=== PATIENT | female | born 1995 | race Caucasian/White ===

== ENCOUNTER 2017-05-20 00:12 | Emergency (ER) | payer MEDICAID ==
[2017-05-20 00:34] LABS: BILIRUBIN,URINE NEGATIVE (NEGATIVE); GLUCOSE, URINE (UA) NEGATIVE (NEGATIVE); KETONES,URINE (UA) NEGATIVE (NEGATIVE); LEUKOCYTE ESTERASE, URINE SMALL (NEGATIVE); NITRITE,URINE POSITIVE (NEGATIVE); OCCULT BLOOD,URINE MODERATE (NEGATIVE); PROTEIN,URINE 30 mg/dL (NEGATIVE); UROBILINOGEN,URINE 1 (NORMAL) E.U./dL (NORMAL)
[2017-05-20 00:42] LABS: CLARITY,URINE CLEAR (CLEAR); HCG UR QUAL NEGATIVE
[2017-05-20 00:43] LABS: BACTERIA,URINE None Seen /HPF (None Seen); SQUAMOUS EPITHELIAL CELL,UR FEW Squamous (<= Few)
--- NOTE | 2017-05-20 00:43 | ED Physician Documentation ---
PD HPI FEMALE - Stated complaint Stated Complaint: LT FLANK PAIN - Chief complaint Chief Complaint: Abd Pain - History obtained from History obtained from: Patient - History of Present Illness Timing - onset: Yesterday Timing - details: Gradual onset, Still present Associated symptoms: Urinary frequency, Hematuria. No: Pelvic pain, Vaginal pain, Vaginal discharge Similar symptoms before: No diagnosis Recently seen: Not recently seen - Additional information Additional information: Patient is a 21 year old female with no significant past medical history who is presenting to the emergency department for left sided flank pain. patient states that two weeks ago she had hematuria that resolved. Patient states that for the last two days she has had flank pain and today took azo. Patient states that her dysuria has resolved. Review of Systems Constitutional: denies: Fever, Chills Eyes: reports: Reviewed and negative Ears: reports: Reviewed and negative Nose: reports: Reviewed and negative Throat: reports: Reviewed and negative Cardiac: denies: Chest pain / pressure Respiratory: denies: Cough, Wheezing GI: denies: Abdominal Pain, Nausea, Vomiting : reports: Dysuria, Frequency, Hematuria Skin: denies: Rash, Lesions Musculoskeletal: reports: Back pain Neurologic: denies: Generalized weakness, Focal weakness, Numbness Immunocompromised: denies: Immunocompromised PD PAST MEDICAL HISTORY - Past Medical History Past Medical History: Yes Psych: Depression, Anxiety - Past Surgical History Past Surgical History: No - Present Medications Home Medications: Ambulatory Orders Medication Instructions Recorded Confirmed Sulfamethox/Trimeth 800/160 1 each PO BID #20 tablet 05/20/17 [Bactrim Ds 800/160] - Allergies Allergies/Adverse Reactions: Allergies Allergy/AdvReac Type Severity Reaction Status Date / Time No Known Drug Allergies Allergy Verified 05/20/17 00:30 - Social History Does the pt smoke?: Yes Smoking Status: Current every day smoker Does the pt drink ETOH?: Yes Does the pt have substance abuse?: No - Immunizations Immunizations are current?: Yes - POLST Patient has POLST: No PD ED PE NORMAL - Vitals Vital signs reviewed: Yes - General General: Alert and oriented X 3, No acute distress, Well developed/nourished - HEENT HEENT: Atraumatic, PERRL, Pharynx benign - Neck Neck: Supple, no meningeal sign - Respiratory Respiratory: No respiratory distress - Abdomen Abdomen: Soft, Non tender, Non distended - Back Back: No CVA TTP - Derm Derm: Normal color, Warm and dry, No rash - Extremities Extremities: No deformity, Normal ROM s pain, No calf tenderness / cord - Neuro Neuro: Alert and oriented X 3, No motor deficit, No sensory deficit, Normal speech - Psych Psych: Normal mood PD ED PE EXPANDED - General General: Anxious Results - Vitals Vitals: Vital Signs - 24 hr 05/20/17 00:15 Temperature 36.8 C Heart Rate 110 H Respiratory 15 Rate Blood Pressure 154/107 H O2 Saturation 98 Oxygen O2 Source Room air PD MEDICAL DECISION MAKING - ED course Complexity details: reviewed old records, reviewed results, re-evaluated patient , considered differential, d/w patient ED course: Patient was seen and examined at bedside. Urine was collected. Patient's urine was consistent with urinary tract infection. Patient was started on bactrim. Patient required no further inpatient work up and was stable for discharge with outpatient follow up. Departure - Departure Disposition: Home, Self Care Clinical Impression: Cystitis, Urinary tract infection Condition: Good Instructions: ED UTI Cystitis Female Follow-Up: Aleks Reeves MD [Primary Care Provider] - Within 1 week Prescriptions: Sulfamethox/Trimeth 800/160 [Bactrim Ds 800/160] 1 each PO BID #20 tablet Comments: Your symptoms today are being caused by a urinary tract infection. You had your first dose of antibiotics and you will need to be on them for ten days. You can take motrin, tylenol and azo as needed for pain and it is important that you follow up with your doctor if your symptoms don't improve over the next 3-4 days. You may return to the emergency department at any time for new, worsening or uncontrollable symptoms.
[2017-05-20] MEDS ORDERED: SULFAMETH/TRIMETH DS 800/160 MG TABLET PO STA (00:45)
[2017-05-20 01:03] VITALS: BP 145/89
== END 2017-05-20 01:02 | disposition home or self-care (01) ==
LOC: ED 00:12
DX: N30.90 Cystitis, unspecified without hematuria (principal); F17.200 Nicotine dependence, unspecified, uncomplicated
CPT/HCPCS: 81001; 81025; 87086; 87181; 99283; A9270; 81003

== ENCOUNTER 2017-07-18 15:38 | Emergency (ER) | payer MEDICAID ==
[2017-07-18 15:45] VITALS: BP 125/72
[2017-07-18 16:05] LABS: BILIRUBIN,URINE NEGATIVE (NEGATIVE); GLUCOSE, URINE (UA) NEGATIVE (NEGATIVE); KETONES,URINE (UA) NEGATIVE (NEGATIVE); LEUKOCYTE ESTERASE, URINE MODERATE (NEGATIVE); NITRITE,URINE POSITIVE (NEGATIVE); OCCULT BLOOD,URINE MODERATE (NEGATIVE); PROTEIN,URINE NEGATIVE (NEGATIVE); UROBILINOGEN,URINE 0.2 (NORMAL) E.U./dL (NORMAL)
[2017-07-18 16:11] LABS: CLARITY,URINE CLEAR (CLEAR)
--- NOTE | 2017-07-18 16:11 | ED Physician Documentation ---
PD HPI FEMALE - Stated complaint Stated Complaint: FEMALE - Chief complaint Chief Complaint: UTI - History obtained from History obtained from: Patient - History of Present Illness Timing - onset: How many days ago (3) Timing - duration: Days (3) Timing - details: Gradual onset, Still present Associated symptoms: Back pain, Dysuria, Urinary frequency, Hematuria Contributing factors: No: Similar symptoms before: Diagnosis (UTI) Recently seen: Not recently seen - Additional information Additional information: 22-year-old female has had one prior episode of urinary tract infection and. She has not had a fever or nausea she does have some back pain. Review of Systems Constitutional: denies: Fever Eyes: denies: Decreased vision Ears: denies: Ear pain Nose: denies: Congestion Throat: denies: Sore throat Cardiac: denies: Chest pain / pressure Respiratory: denies: Dyspnea, Cough GI: denies: Abdominal Pain, Nausea, Vomiting, Constipation, Diarrhea : reports: Dysuria, Frequency Skin: denies: Rash Musculoskeletal: reports: Back pain. denies: Neck pain, Extremity pain Neurologic: denies: Generalized weakness, Focal weakness PD PAST MEDICAL HISTORY - Past Medical History Past Medical History: No Psych: Depression, Anxiety - Past Surgical History Past Surgical History: No - Present Medications Home Medications: Ambulatory Orders Medication Instructions Recorded Confirmed Sulfamethoxazole/Trimethoprim 1 each PO BID #10 tablet 07/18/17 [Sulfamethoxazole-Tmp Ds Tablet] - Allergies Allergies/Adverse Reactions: Allergies Allergy/AdvReac Type Severity Reaction Status Date / Time No Known Drug Allergies Allergy Verified 05/20/17 00:30 - Social History Does the pt smoke?: Yes Smoking Status: Current every day smoker Does the pt drink ETOH?: Yes Does the pt have substance abuse?: No - Immunizations Immunizations are current?: Yes - POLST Patient has POLST: No PD ED PE NORMAL - Vitals Vital signs reviewed: Yes (normal ) - General General: No acute distress, Well developed/nourished - HEENT HEENT: Atraumatic, PERRL, EOMI - Neck Neck: Supple, no meningeal sign - Cardiac Cardiac: RRR, No murmur - Respiratory Respiratory: No respiratory distress, Clear bilaterally - Abdomen Abdomen: Soft, Other (mild tenderness to bimanual palpation of each kidney) - Back Back: No spinal TTP - Derm Derm: Normal color, Warm and dry, No rash - Extremities Extremities: No deformity, No edema - Neuro Neuro: No motor deficit, No sensory deficit Eye Opening: Spontaneous Motor: Obeys Commands Verbal: Oriented GCS Score: 15 - Psych Psych: Normal mood, Normal affect Results - Vitals Vitals: Vital Signs - 24 hr 07/18/17 15:43 Temperature 36.5 C Heart Rate 93 Respiratory 14 Rate Blood Pressure 125/72 O2 Saturation 99 Oxygen O2 Source Room air - Labs Labs: Laboratory Tests 07/18/17 15:58 Urine Color DARK YELLOW Urine Clarity CLEAR Urine pH 5.0 Ur Specific [place] <=1.005 Urine Protein NEGATIVE Urine Glucose (UA) NEGATIVE Urine Ketones NEGATIVE Urine Occult Blood MODERATE H Urine Nitrite POSITIVE H Urine Bilirubin NEGATIVE Urine Urobilinogen 0.2 (NORMAL) Ur Leukocyte Esterase MODERATE H Urine RBC 0-5 Urine WBC >25 H Urine WBC Clumps PRESENT Ur Squamous Epith Cells FEW Squamous Urine Bacteria Moderate H Ur Microscopic Review INDICATED Urine Culture Comments INDICATED PD MEDICAL DECISION MAKING - ED course Complexity details: reviewed results, re-evaluated patient, considered differential, d/w patient ED course: 22-year-old female with urinary tract infection is placed on Septra.Her prior urine grew a sensitive E. coli. Departure - Departure Disposition: 01 Home, Self Care Clinical Impression: Urinary tract infection Qualifiers: Urinary tract infection type: acute cystitis Hematuria presence: with hematuria Qualified Code(s): N30.01 - Acute cystitis with hematuria Condition: Stable Instructions: ED UTI Cystitis Female Follow-Up: Aleks Reeves MD [Primary Care Provider] - Prescriptions: Sulfamethoxazole/Trimethoprim [Sulfamethoxazole-Tmp Ds Tablet] 1 each PO BID # 10 tablet Discharge Date/Time: 07/18/17 16:15
[2017-07-18 16:24] LABS: BACTERIA,URINE Moderate /HPF (None Seen); RBC,URINE 0-5 /HPF (0-5); SQUAMOUS EPITHELIAL CELL,UR FEW Squamous (<= Few)
[2017-07-18 16:25] LABS: WBC CLUMPS,URINE PRESENT
== END 2017-07-18 16:15 | disposition home or self-care (01) ==
LOC: ED 15:38
DX: N30.01 Acute cystitis with hematuria (principal); F17.200 Nicotine dependence, unspecified, uncomplicated
CPT/HCPCS: 81001; 81003; 87077; 87086; 99283

== ENCOUNTER 2017-07-20 17:21 | Emergency (ER) | payer MEDICAID ==
[2017-07-20 18:31] LABS: BILIRUBIN,URINE NEGATIVE (NEGATIVE); GLUCOSE, URINE (UA) NEGATIVE (NEGATIVE); KETONES,URINE (UA) NEGATIVE (NEGATIVE); LEUKOCYTE ESTERASE, URINE LARGE (NEGATIVE); NITRITE,URINE NEGATIVE (NEGATIVE); OCCULT BLOOD,URINE LARGE (NEGATIVE); PH,URINE 6.5 PH (5.0-7.5); PROTEIN,URINE TRACE mg/dL (NEGATIVE); UROBILINOGEN,URINE 0.2 (NORMAL) E.U./dL (NORMAL)
[2017-07-20 18:32] LABS: CLARITY,URINE CLOUDY (CLEAR)
--- NOTE | 2017-07-20 18:33 | ED Physician Documentation ---
PD HPI FEMALE - Stated complaint Stated Complaint: FEM - Chief complaint Chief Complaint: Abd Pain - History obtained from History obtained from: Patient - History of Present Illness Timing - onset: How many days ago (several) Timing - duration: Days Timing - details: Gradual onset (had UTI symptoms initally and was seen here with UTI Dx and Rx bactrim. She is not improved and having flank pain, nausea, fevers. Culture result today showing resistance to sulfa, so reasonable to not be improved.), Still present Associated symptoms: Fever, Abdominal pain, Dysuria, Urinary frequency. No: Vaginal discharge, Genital sore/lesion Contributing factors: No: Exposed to STD Similar symptoms before: Has not had sx before Recently seen: Emergency Dept Review of Systems Constitutional: reports: Fever, Chills, Myalgias Nose: denies: Rhinorrhea / runny nose, Congestion Throat: denies: Sore throat Respiratory: denies: Dyspnea, Cough GI: reports: Nausea. denies: Vomiting, Diarrhea : reports: Dysuria, Frequency. denies: Discharge Skin: denies: Rash, Lesions Neurologic: reports: Generalized weakness. denies: Focal weakness, Near syncope PD PAST MEDICAL HISTORY - Past Medical History Cardiovascular: None Respiratory: None Neuro: None Endocrine/Autoimmune: None Psych: Depression, Anxiety - Past Surgical History Past Surgical History: No - Present Medications Home Medications: Ambulatory Orders Medication Instructions Recorded Confirmed Sulfamethoxazole/Trimethoprim 1 each PO BID #10 tablet 07/18/17 [Sulfamethoxazole-Tmp Ds Tablet] Cephalexin [Keflex] 500 mg PO QID #28 capsule 07/20/17 Naproxen 375 mg PO BID #20 tablet 07/20/17 Ondansetron Odt [Zofran] 4 mg TL Q6H PRN #15 tablet 07/20/17 Tramadol HCl 50 mg PO Q6H PRN #20 tablet 07/20/17 - Allergies Allergies/Adverse Reactions: Allergies Allergy/AdvReac Type Severity Reaction Status Date / Time No Known Drug Allergies Allergy Verified 05/20/17 00:30 - Social History Does the pt smoke?: Yes Smoking Status: Current every day smoker Does the pt drink ETOH?: Yes Does the pt have substance abuse?: No - Immunizations Immunizations are current?: Yes - POLST Patient has POLST: No PD ED PE NORMAL - Vitals Vital signs reviewed: Yes (fever and tachycardia) - General General: Alert and oriented X 3, Well developed/nourished - HEENT HEENT: Pharynx benign - Neck Neck: Supple, no meningeal sign, No adenopathy - Cardiac Cardiac: RRR, No murmur - Respiratory Respiratory: No respiratory distress, Clear bilaterally - Abdomen Abdomen: Normal bowel sounds, Soft, Non distended, No organomegaly, Other (mild tender suprapubic area) - Female Female : Deferred - Rectal Rectal: Deferred - Back Back: No spinal TTP, Other (bilateral CVA tender, more on right. ) - Derm Derm: Normal color, Warm and dry - Neuro Neuro: Alert and oriented X 3, No motor deficit, Normal speech Results - Vitals Vitals: Oxygen O2 Source Room air - Labs Labs: Microbiology 07/20/17 18:27 Urine Culture - Preliminary Urine,Clean Catch Laboratory Tests 07/20/17 07/20/17 07/20/17 18:25 18:25 18:27 WBC 15.6 H RBC 4.87 Hgb 12.6 Hct 39.8 MCV 81.8 MCH 25.9 L MCHC 31.6 L RDW 12.6 Plt Count 339 MPV 7.8 L Neut # 13.1 H Lymph # 0.8 L [place] # 1.5 H Eos # 0.1 Baso # 0.1 Absolute Nucleated RBC 0.00 Nucleated RBC % 0.0 Sodium 131 L Potassium 3.7 Chloride 100 L Carbon Dioxide 23 Anion Gap 8.0 BUN 10 Creatinine 0.7 Estimated GFR (MDRD) 107 Glucose 125 H Lactic Acid Calcium 9.2 Total Bilirubin 0.4 AST 20 ALT 20 Alkaline Phosphatase 64 Total Protein 8.1 Albumin 4.3 Globulin 3.8 Albumin/Globulin Ratio 1.1 Lipase 10 L Urine Color YELLOW Urine Clarity CLOUDY Urine pH 6.5 Ur Specific [place] 1.010 Urine Protein TRACE Urine Glucose (UA) NEGATIVE Urine Ketones NEGATIVE Urine Occult Blood LARGE H Urine Nitrite NEGATIVE Urine Bilirubin NEGATIVE Urine Urobilinogen 0.2 (NORMAL) Ur Leukocyte Esterase LARGE H Urine RBC 6-10 H Urine WBC >25 H Urine WBC Clumps PRESENT Ur Squamous Epith Cells FEW Squamous Urine Bacteria Many H Ur Microscopic Review INDICATED Urine Culture Comments INDICATED 07/20/17 18:40 WBC RBC Hgb Hct MCV MCH MCHC RDW Plt Count MPV Neut # Lymph # [place] # Eos # Baso # Absolute Nucleated RBC Nucleated RBC % Sodium Potassium Chloride Carbon Dioxide Anion Gap BUN Creatinine Estimated GFR (MDRD) Glucose Lactic Acid 1.5 Calcium Total Bilirubin AST ALT Alkaline Phosphatase Total Protein Albumin Globulin Albumin/Globulin Ratio Lipase Urine Color Urine Clarity Urine pH Ur Specific [place] Urine Protein Urine Glucose (UA) Urine Ketones Urine Occult Blood Urine Nitrite Urine Bilirubin Urine Urobilinogen Ur Leukocyte Esterase Urine RBC Urine WBC Urine WBC Clumps Ur Squamous Epith Cells Urine Bacteria Ur Microscopic Review Urine Culture Comments PD MEDICAL DECISION MAKING - ED course Complexity details: reviewed old records, reviewed results (prior culture showing e.coli resistant to sulfa. ), considered differential (she is feeling much better with IV fluids and meds. Wants to go home. ), d/w patient Departure - Departure Disposition: , Self Care Clinical Impression: Pyelonephritis Nausea & vomiting Qualifiers: Vomiting type: unspecified Vomiting Intractability: non-intractable Qualified Code(s): R11.2 - Nausea with vomiting, unspecified Condition: Stable Record reviewed to determine appropriate education?: Yes Instructions: ED Kidney Infec Female Follow-Up: Aleks Reeves MD [Primary Care Provider] - Prescriptions: Cephalexin [Keflex] 500 mg PO QID #28 capsule Naproxen 375 mg PO BID #20 tablet Ondansetron Odt [Zofran] 4 mg TL Q6H PRN #15 tablet PRN Reason: Nausea / Vomiting Tramadol HCl 50 mg PO Q6H PRN #20 tablet PRN Reason: Pain Comments: Drink lots of fluids. Ondansetron if needed for nausea. Naproxen twice daily for a week for inflammation and pain. Tylenol all if needed for mild pains. Add tramadol if needed for worse pain. The infection you had from the other day was resistant to the sulfa antibiotic you have been prescribed by nata julio. He usually would have been the correct antibiotic most of the time. However in this case we will switch it to cephalexin 4 times a day for a week and the culture result from the other day shows this antibiotic should work. Recheck if not improving over the next couple of days. Forms: Activity restrictions Discharge Date/Time: 07/20/17 20:53
[2017-07-20 18:40] LABS: BACTERIA,URINE Many /HPF (None Seen); SQUAMOUS EPITHELIAL CELL,UR FEW Squamous (<= Few); WBC CLUMPS,URINE PRESENT
[2017-07-20 18:47] LABS: ALBUMIN 4.3 g/dL (3.2-5.5); ALBUMIN/GLOBULIN RATIO 1.1 (1.0-2.2); BILIRUBIN,TOTAL 0.4 mg/dL (0.2-1.0); CALCIUM 9.2 mg/dL (8.5-10.3); CREATININE 0.7 mg/dL (0.4-1.0); TOTAL PROTEIN 8.1 g/dL (6.7-8.2)
[2017-07-20 18:48] LABS: BASOPHILS # (AUTO) 0.1 10^3/uL (0.0-0.1); BASOPHILS % (AUTO) 0.3 %; EOSINOPHILS # (AUTO) 0.1 10^3/uL (0.0-0.7); EOSINOPHILS % (AUTO) 0.7 %; HGB - HEMOGLOBIN 12.6 g/dL (12.0-16.0); LYMPHOCYTES # (AUTO) 0.8 10^3/uL (1.5-3.5); LYMPHOCYTES % (AUTO) 5.1 %; MEAN CORPUSCULAR HEMOGLOBIN 25.9 pg (27.0-31.0); MEAN CORPUSCULAR HGB CONC 31.6 g/dL (32.0-36.0); MEAN CORPUSCULAR VOLUME 81.8 fL (81.0-99.0); MEAN PLATELET VOLUME 7.8 fL (7.9-10.8); MONOCYTES # (AUTO) 1.5 10^3/uL (0.0-1.0); MONOCYTES % (AUTO) 9.5 %; NEUTROPHILS # (AUTO) 13.1 10^3/uL (1.5-6.6); NEUTROPHILS % (AUTO) 84.4 %; PLT - PLATELET COUNT 339 10^3/uL (130-450); RED BLOOD COUNT 4.87 10^6/uL (4.20-5.40); RED CELL DISTRIBUTION WIDTH 12.6 % (12.0-15.0); WHITE BLOOD COUNT 15.6 x10^3/uL (4.8-10.8)
[2017-07-20] MEDS ORDERED: SODIUM CHLORIDE 0.9% 1,000 ML IV ONE ×2 (18:55)
[2017-07-20] MEDS ORDERED: KETOROLAC 60 MG/2 ML VIAL IVP STA (18:55)
[2017-07-20] MEDS ORDERED: ONDANSETRON 4 MG/2 ML VIAL IVP STA (18:55)
[2017-07-20] MEDS ORDERED: cefTRIAXone 1 GM in SODIUM CHLORIDE 0.9% MINIBAG 100 ML IV STA (18:55)
[2017-07-20] MEDS ORDERED: ONDANSETRON ODT 4 MG Prepack 2 TL PRN (20:24)
[2017-07-20 20:32] VITALS: BP 106/59
== END 2017-07-20 20:53 | disposition home or self-care (01) ==
LOC: ED 17:21
DX: N12 Tubulo-interstitial nephritis, not specified as acute or chronic (principal); R11.2 Nausea with vomiting, unspecified; F17.200 Nicotine dependence, unspecified, uncomplicated
CPT/HCPCS: 36415; 80053; 81001; 81003; 83605; 83690; 85025; 87077; 87086; 96365; 96375; 99283; 99284

== ENCOUNTER 2021-05-11 14:33 | Outpatient (CLI) | payer OTHER ==
--- NOTE | 2021-05-11 18:13 | Ultrasound Report ---
PROCEDURE: Abdomen Limited INDICATIONS: RUQ PAIN TECHNIQUE: Real-time focused scanning was performed of the abdomen, with image documentation. COMPARISON: None FINDINGS: The liver demonstrates normal size. The liver demonstrates moderately increased echogeni [place], which limits ultrasound sensitivity for detection of masses. No gallstones or sludge can be seen. The gallbladder wall does not appear thickened. There is no spec ific pericholecystic fluid. The sonographic Hurley's sign is negative. No biliary ductal dilatation is seen. The common bile duct measures 6 mm. The visualized pancreas is within normal limits. The visualized right kidney is unremarkable. IMPRESSION: The gallbladder demonstrates a normal sonographic appearance. No biliary dilatation is s een. Increased liver echogenicity is seen. This is nonspecific, yet it is most commonly attributed to fatt y infiltration. Reviewed by: Zeke Vásquez MD on 05/11/2021 5:11 PM [facility] Approved by: Zeke Vásquez MD on 05/11/2021 5:11 PM [facility] Station ID: [id number]
== END 2021-05-11 14:34 | disposition home or self-care (01) ==
LOC: DI 14:33
PROVIDERS: ATTEND Student in an Organized Health Care Education/Training Program
DX: R10.11 Right upper quadrant pain (principal)